=== PATIENT | female | born 1980 | race Caucasian/White ===

== ENCOUNTER 2021-02-21 12:36 | Emergency (ER) | payer OTHER ==
[2021-02-21 13:13] LABS: HCG,QUALITATIVE URINE Negative
[2021-02-21 13:15] VITALS: BP 120/64; PULSE 73; TEMP 97.8; BMI 21.9
[2021-02-21] MEDS ORDERED: DEXAMETHASONE SOD PHOSPHATE 4 MG/1 ML VIAL IM ONE (13:16)
[2021-02-21] MEDS ORDERED: LIDOCAINE 5% TOPICAL PATCH TP ONE (13:16)
[2021-02-21] MEDS ORDERED: DEXAMETHASONE SOD PHOSPHATE 4 MG/1 ML VIAL ONE (13:18)
[2021-02-21] MEDS ORDERED: LIDOCAINE 5% TOPICAL PATCH ONE (13:18)
[2021-02-21] MEDS ORDERED: LIDOCAINE PATCH REMOVAL MC SCH (22:00)
== END 2021-02-21 14:13 | disposition home or self-care (01) ==
LOC: FER 12:36
PROC: 3E0233Z Introduction of Anti-inflammatory into Muscle, Percutaneous Approach (ICD-10-PCS; principal; 2021-02-21)
DX: M54.5 Low back pain (principal)
CPT/HCPCS: 81003; 81015; 84703; 87086; 99284-25